=== PATIENT | male | born 1975 | race Caucasian/White ===

== ENCOUNTER 2020-06-02 09:50 | Emergency (ER) | payer MEDICAID, SELFPAY ==
[2020-06-02 09:53] VITALS: BP 112/72; PULSE 76; RESP 20; TEMP 36.5; O2SAT 98
--- NOTE | 2020-06-02 10:00 | DI.CT_ITS ---
EXAM: CT PELVIC WO CLINICAL HISTORY: trauma/L buttock hematoma/difficulty ambulating TECHNIQUE: COMPARISON: CT CT LUMBAR SPINE WO from 06/02/2020 FINDINGS: CT examination of the lumbosacral spine and CT examination of the pelvis were performed without contr ast administration and are interpreted in conjunction. There is an apparent post-traumatic hematoma the subcutaneous tissues the left buttock region measuri ng roughly 3 x 9 cm in diameter on axial imaging. No definite underlying intramuscular hematoma seen . No fracture identified involving the pelvis or lumbar spine. There are mild degenerative changes involving the lumbar region some loss of height of the interverte bral disc spaces throughout the lumbar region, vacuum disc phenomena and at L5-S1 and L2-3, and mild facet hypertrophic changes. No gross disc herniation identified by CT criteria. No pelvic mass or intrapelvic hematoma seen. No significant abdominal wall hernia identified. Visua lized portions of the liver, kidneys, spleen, and aorta appear intact. IMPRESSION: Large left subcutaneous buttock hematoma. No underlying fracture seen. RADIATION DOSE DELIVERED: Total DLP
--- NOTE | 2020-06-02 10:00 | W.ED.GENAD ---
Discharge Plan Disposition Condition: Stable Discharge Details Chief Complaint: Nk/Back Pain Clinical Impression: Traumatic hematoma of buttock, Back pain, Fall Primary Care Provider: Seema Simmons ED Provider: Matthew Birmingham Home Meds and New Rx's Prescriptions: New oxycodone-acetaminophen [Percocet] 5-325 mg tablet 1 tab PO Q8H PRNQty: 8 RF: 0 Continued ibuprofen [IBU-200] 200 mg Tablet 400 mg PO Q6H PRNRF: 0 epinephrine 0.3 mg/0.3 mL auto-injector RF: 0 Discharge Instructions Instructions: Back Pain (ED), Hematoma (ED) Additional Instructions: Percocet as directed, may cause drowsiness and/or constipation. [id number] anti-inflammatory medication as directed. Cool and/or warm compresses every 2 hours for 20 minutes. Use crutches as needed, advance activity as tolerated. Please watch for new or worsening symptoms and return to the ER for any concerns. Otherwise contact your primary care provider today or tomorrow for prompt outpatient reevaluation. Medical Decision Making 45-year-old female presents status post mechanical fall on slippery stair landing directly on the stair. She has an impressive hematoma as well as tenderness around the area and her lower back. Although she does not appear to be in distress she appears to be uncomfortable and has quite an antalgic gait. The pain was so severe it caused her nausea and vomiting. We discussed her options at this time will obtain IV access, obtain routine laboratory values, give IV Zofran and morphine obtain CT imaging of her lumbar spine and pelvis. Patient is agreeable to this plan Hemoglobin 13.6 hematocrit 40.1 platelet count 154. Chemistries unremarkable. Urinalysis trace ketones but no blood. CT imaging of pelvis and lumbar spine read by radiology as a large buttock hematoma but no bony abnormality. Upon reevaluation patient reports some relief with the morphine. She remains hemodynamically stable under my care. I reassessed her ecchymosis, there is been no spreading during her observation here in the ER which is over 2 hours. We discussed her work-up here in the ER, normal bony structures. Patient has no additional questions or concerns and is comfortable discharge. We discussed the importance of cool and/or warm compresses, she has crutches at home, and I will provide a prescription for short-term analgesia. Medical Records Medical records reviewed: Yes I reviewed the patient's medical records. Lab Data Lab results reviewed: Yes I reviewed the patient's lab results. Lab results narrative: Laboratory Tests Range/Units 06/02/20 06/02/20 06/02/20 10:25 10:25 10:40 WBC (4.4-10.8) 10^3/uL 3.74 L RBC (4.36-5.78) 10^6/uL 4.41 Hgb (13.5-17.5) g/dL 13.6 Hct (40.0-50.0) % 40.1 MCV (80-95) fL 90.9 MCH (27.0-33.0) pg 30.8 MCHC (32.0-36.0) % 33.9 RDW (11.8-14.1) % 12.8 Plt Count (130-400) 10^3/uL 154 MPV (8.0-11.0) fL 10.2 Immature Gran % 0.3 Neutrophils % 64.9 Lymphocytes % 22.2 Monocytes % 9.1 Eosinophils % 2.4 Basophils % 1.1 Nucleated RBC % % 0 Absolute Neutrophils (1.2-6.7) 10^3/uL 2.43 Absolute Lymphocytes (1.2-3.4) 10^3/uL 0.83 L Absolute Monocytes (0.1-0.8) 10^3/uL 0.34 Absolute Eosinophils (0.0-0.7) 10^3/uL 0.09 Absolute Basophils (0.0-0.2) 10^3/uL 0.04 Sodium (136-145) mmol/L 139 Potassium (3.5-5.1) mmol/L 3.6 Chloride (98-107) mmol/L 105 Carbon Dioxide (21.0-32.0) mmol/L 29.1 Anion Gap (3-11) mmol/L 4.9 BUN (7-18) mg/dL 14 Creatinine (0.70-1.30) mg/dL 0.60 L Estimated GFR/1.73 m2 (mL/min/1.73m2) >= 60.00 Glucose (74-106) mg/dL 132 H Calcium (8.5-10.1) mg/dL 8.9 Total Bilirubin (0.2-1.0) mg/dL 0.4 AST (15-37) U/L 21 ALT (16-63) U/L 28 Alkaline Phosphatase (46-116) U/L 77 Total Protein (6.4-8.2) g/dL 7.0 Albumin (3.4-5.0) g/dL 3.4 Urine Color (Yellow) Yellow Urine Clarity (Clear) Clear Urine pH (5-8) 5.5 Ur Specific [place] (1.005-1.025) >= 1.030 H Urine Protein (Negative) mg/dL Trace H Urine Ketones (Negative) mg/dL Trace H Urine Blood (Negative) Negative Urine Nitrite (Negative) Negative Urine Bilirubin (Negative) Negative Urine Urobilinogen (Up TO 0.2) EU/dL 0.2 Ur Leukocyte Esterase (Negative) Negative Urine RBC (0-2) HPF 0-2 Urine WBC (0-5) HPF 3-5 Ur Epithelial Cells (Negative) HPF Many Urine Crystals (Negative) HPF Many amorphous Urine Bacteria (Negative) HPF Urine Casts (Negative) LPF Urine Mucus (Negative) Heavy Ur Culture Indicated? No/sq. contamination Urine Glucose (Negative) mg/dL Negative HPI General Mode of arrival: ambulatory. Date/Time Provider Initiated Documentation: 06/02/20 09:51. Limitations to Documentation: no limitations. Information obtained by: patient. HPI Narrative: This is a 45-year-old female who denies significant past medical history presenting for right lower back and left pelvis-buttock injury that occurred around 730 this morning. She slipped on an icy stair, falling backwards, landing directly on the edge of the stair. She reports that she did strike the back of her head but denies LOC, headache, neck pain, chest pain, shortness of breath, abdominal pain, change in bowel or bladder habits, numbness, tingling, weakness. She initially had pain that was mild in her lower back and buttocks however progressively the area has become increasingly severely painful and a large bruise has appeared. The pain is so severe that is causing her to feel nauseous, she did vomit x1. The pain does radiate slightly down her left leg but not as far as her knee. She has not taken anything for her pain. She denies any other injuries. Related Data Home Medications Medication Instructions Recorded Confirmed epinephrine 06/02/20 ibuprofen [IBU-200] 400 mg PO Q6H PRN 06/02/20 06/02/20 oxycodone-acetaminophen [Percocet] 1 tab PO Q8H PRN #8 tab 06/02/20 Previous Rx's Medication Instructions Recorded oxycodone-acetaminophen [Percocet] 1 tab PO Q8H PRN #8 tab 06/02/20 Allergies Allergy/AdvReac Type Severity Reaction Status Date / Time codeine Allergy Hives Unverified 06/02/20 09:58 morphine Allergy Skin Rash Unverified 06/02/20 09:58 shellfish derived Allergy Unverified 06/02/20 09:58 General Stated Complaint: Nk/Back Pain YOMAIRA: 3 Review of Systems Constitutional Constitutional: Denies headache(s) and Denies weakness Eyes Eyes: Denies change in vision ENT Ears, Nose, Mouth, and Throat: Denies headache(s) and Denies neck pain Cardiovascular Cardiovascular: Denies chest pain and Denies dyspnea Respiratory Respiratory: Denies dyspnea Gastrointestinal Gastrointestinal: Denies abdominal pain, Reports nausea and Reports vomiting Genitourinary Genitourinary: Denies urinary incontinence Musculoskeletal Musculoskeletal: Reports back pain, Denies neck pain, Denies numbness, Reports stiffness and Denies tingling Integumentary/Breasts Skin/Breast: Denies rash Neurologic Neurologic: Denies headache(s), Denies numbness, Denies tingling and Denies weakness [facility] Social History Smoking/Tobacco Use Status: Never Alcohol Intake: never Drug use: Never Do you feel safe at home: Yes Do you feel safe in your relationship?: Yes Exam Const General: cooperative, healthy appearing and no acute distress Orientation: alert, awake and oriented x3 HENMT Head: normal to inspection, normocephalic and atraumatic Mouth: moist mucous membranes Eyes Conjunctivae: conjunctivae normal Sclera: sclerae normal Neck Neck: normal visual inspection, full ROM, trachea midline and supple Resp Effort & Inspection: normal respiratory effort and able to speak in complete sentences Auscultation: clear to auscultation bilaterally Cardio Rate: regular rate Rhythm: regular rhythm GI Palpation: soft and nontender Back/Spine/Pelvis Back: back tenderness (Diffuse mild lumbar, lower lumbar midline tenderness) Back/spine/pelvis image: 1. Swelling, tenderness, ecchymosis. Central abrasion. No erythema Skin General skin exam: no rashes or lesions noted Neuro General: patient alert, patient awake, moves all extremities and no focal motor deficits Cognition: normal cognition Gait: antalgic Motor: muscle tone normal throughout and strength 5/5 throughout Sensory Exam: no sensory deficits noted Extrem Right upper extremity: normal to inspection and full ROM Left upper extremity: normal to inspection and full ROM Right lower extremity: normal to inspection, full ROM and normal capillary refill Left lower extremity: full ROM, normal capillary refill and hip/thigh (Ecchymosis as described above) Psych Appearance: grossly normal Mental Status: mental status grossly normal Course Vital Signs Vital signs: Vital Signs Temperature 36.5 C 06/02/20 09:53 Pulse 76 06/02/20 09:53 Respiratory Rate 06/02/20 09:53 Blood Pressure 112/72 06/02/20 09:53 Pulse Oximetry 98 06/02/20 09:53 Temperature 36.5 C 06/02/20 09:53 Temperature Source Temporal Artery Scan 06/02/20 09:53 Pulse 76 06/02/20 09:53 Respiratory Rate 06/02/20 09:53 Respiratory Effort Non-Labored 06/02/20 09:57 Blood Pressure 112/72 06/02/20 09:53 Blood Pressure Position Sitting 06/02/20 09:53 Pulse Oximetry 98 06/02/20 09:53 Oxygen Delivery Method Room Air 06/02/20 09:53 Oxygen Flow Rate 0 06/02/20 09:53 Pain Level 06/02/20 09:53
[2020-06-02] MEDS: Ondansetron 4 MG/2 ML VIAL IVP (10:30)
[2020-06-02] MEDS: Normal Saline Flush 10 ML SYR IVP (10:30)
[2020-06-02 10:43] LABS: Abs Immature Grans 0.01 10^3/uL (0.0-0.06); Absolute Basophil Count 0.04 10^3/uL (0.0-0.2); Absolute Eosinophil Count 0.09 10^3/uL (0.0-0.7); Absolute Lymphocyte Count 0.83 10^3/uL (1.2-3.4); Absolute Monocyte Count 0.34 10^3/uL (0.1-0.8); Absolute Neutrophil Count 2.43 10^3/uL (1.2-6.7); Basophils % 1.1; Eosinophils % 2.4; HCT 40.1 % (40.0-50.0); HGB 13.6 g/dL (13.5-17.5); Immature Grans % 0.3; Lymphocytes % 22.2; MCH 30.8 pg (27.0-33.0); MCHC 33.9 % (32.0-36.0); MCV 90.9 fL (80-95); MPV 10.2 fL (8.0-11.0); Monocytes % 9.1; Neutrophils % 64.9; Nucleated RBC 0 %; Platelet Count 154 10^3/uL (130-400); RBC 4.41 10^6/uL (4.36-5.78); RDW 12.8 % (11.8-14.1); RDW-SD 42.5 fL; WBC 3.74 10^3/uL (4.4-10.8)
[2020-06-02 10:52] LABS: Bilirubin Negative (Negative); Blood Negative (Negative); Clarity Clear (Clear); Glucose Negative (Negative); Ketones Trace mg/dL (Negative); Leukocyte Esterase Negative (Negative); Nitrite Negative (Negative); Specific Gravity >= 1.030 (1.005-1.025); Urobilinogen 0.2 EU/dL (Up TO 0.2); pH 5.5 (5-8)
[2020-06-02 10:57] LABS: ALT 28 U/L (16-63); AST 21 U/L (15-37); Albumin 3.4 g/dL (3.4-5.0); Alkaline Phosphatase 77 U/L (46-116); Anion Gap 4.9 mmol/L (3-11); BUN 14 mg/dL (7-18); Bilirubin, Total 0.4 mg/dL (0.2-1.0); CO2 29.1 mmol/L (21.0-32.0); Calcium 8.9 mg/dL (8.5-10.1); Chloride 105 mmol/L (98-107); Glucose 132 mg/dL (74-106); Potassium 3.6 mmol/L (3.5-5.1); Sodium 139 mmol/L (136-145)
[2020-06-02 11:19] LABS: Epithelial Cells Many HPF (Negative); RBC 0-2 HPF (0-2)
[2020-06-02 11:20] LABS: Crystals Many Amorphous HPF (Negative); Mucus Heavy (Negative)
[2020-06-02 11:21] LABS: C & S Indicated? No/Sq. Contamination
[2020-06-02 12:55] VITALS: BP 111/80; PULSE 63; RESP 16; TEMP 36.5; O2SAT 96
== END 2020-06-02 12:50 ==
PROVIDERS: Emergency Provider Physician Assistant; PCP Physician Assistant Medical
DX: S30.0XXA Contusion of lower back and pelvis, initial encounter (principal); M54.5 Low back pain; W10.8XXA Fall (on) (from) other stairs and steps, initial encounter
CPT/HCPCS: 36415; 80053; 81025; 96374; 96375; 99284; 72131; 72192; 81003; 81015; 85025; J2405